=== PATIENT | female | born 1960 | race Caucasian/White ===

== ENCOUNTER 2024-04-04 18:41 | Emergency (ER) | payer OTHER, SELFPAY ==
[2024-04-04 18:47] VITALS: BP 144/83; BMI 31.5
[2024-04-04 19:05] LABS: % Basophils 0.4 % (0-2); % Immature Granulocytes 0.3 % (0-0.5); % Lymphocytes 20.9 % (20.5-51.1); % Monocytes 5.5 % (1.7-9.3); % Neutrophils 71.9 % (42.2-75.2); Absolute Eosinophils 0.1 10^3/uL (0-0.7); Absolute Lymphocytes 1.9 10^3/uL (1.2-3.4); Absolute Monocytes 0.5 10^3/uL (0.1-0.6); Absolute Neutrophils 6.4 10^3/uL (1.4-6.5); Hematocrit 43.2 % (37.0-47.0); Mean Corp Hgb Conc. 34.7 g/dL (33.0-37.0); Mean Corpuscular Hgb 29.5 pg (27.0-31.0); Mean Platelet Volume 9.9 fL (7.4-10.4); Nucleated Red Blood Cells % 0 %; Platelet Count 178 10^3/uL (130-400); Red Blood Cell Count 5.08 10^6/uL (4.20-5.40); Red Cell Dist. Width 12.7 % (11.5-14.5); White Blood Cell Count 8.9 10^3/uL (4.8-10.8)
[2024-04-04 19:21] LABS: ALT (SGPT) 27 U/L (0-35); AST (SGOT) 31 U/L (14-36); Albumin 4.2 g/dl (3.5-5.0); Alkaline Phosphatase 106 U/L (38-126); Blood Urea Nitrogen 16 mg/dl (7-17); Calcium 9.2 mg/dl (8.4-10.2); Carbon Dioxide 26 mmol/L (22-30); Chloride 105 mmol/L (98-107); Estimated Creatinine Clearance 81 ml/min; Glucose 128 mg/dl (70-99); Sodium 138 mmol/L (135-145); Total Bilirubin 0.5 mg/dl (0.2-1.3); eGFR > 60.00
[2024-04-04 19:28] LABS: Troponin I < 0.012 ng/ml
[2024-04-04 20:34] VITALS: BP 123/65
--- NOTE | 2024-04-04 21:46 | ED.GENMED ---
History of Present Illness
General
Chief Complaint: Chest Pain
Source: patient
Time Seen by Provider: 04/04/24 20:47
Travel History
Have you had any contact with someone who has COVID-19?: No
Do you have any symptoms of coronavirus? Fever > 100 degrees, chills, cough, shortness of breath, sore throat, loss of taste or smell, muscle aches, or headache?: No
History of Present Illness
History of Present Illness:
This patient is a 63-year-old female presents emergency department with complaints of discomfort in her central chest and left shoulder blade area that started yesterday. She says 'it does not take my breath away', and occasionally is 'burning' in
quality. She denies associated dyspnea. It is not pleuritic. She said it is very periodic' comes and goes and then it is done', also describing episodes that last seconds at a time and then unpredictably resolving and then coming back. She
wonders if it could be a muscular strain as she was assembling a computer recently. However, when symptoms continued today, she got concerned which prompted her visit here. Patient has a history of a left bundle branch block, no known history of
CAD, last stress was 1-1/2 to 2 years ago and looked well. Patient denies associated diaphoresis, neck pain, jaw pain, headache, dizziness, leg swelling, recent immobilization, recent trauma, abdominal pain, nausea, vomiting, or other complaints.
Patient is pain-free at this time. The last time she had discomfort was on her way over here. Again, it lasted just a few seconds and then resolved completely.
Past History
Past History
ED Past Medical History: Hypercholesterolemia and Hypothyroidism
ED Past Surgical History: Gynecological and Other (Thyroidectomy)
Social History
Tobacco: Non-smoker
Alcohol: None
Drug: None
Personal:
Living: with family
Family History
Family History: Diabetes, CAD and Other (Breast cancer)
Phy Exam
Physical Exam
Physical Exam:
GENERAL: Alert , in no apparent distress
EYE: pupils equal and reactive
NECK: Supple, no significant adenopathy.
ENT: o/p clr, mmm.
CARDIAC: Regular rate and rhythm .
LUNGS: Clear breath sounds bilaterally, no acute respiratory distress, no wheezes/rales/rhonchi
ABDOMEN: Soft, without focal tenderness, no r/g, no cvat
NEUROLOGICAL: Alert and oriented, no focal neuro deficits
SKIN: Warm and dry, skin intact.
MUSCULOSKELETAL: No edema, well perfused.
PSYCH: Normal and appropriate interaction.
Scores
Heart Score for Chest Pain Patients
STEMI patient?: Not applicable
Course
Orders/Labs/Results
Orders:
Orders
04/04/24 18:42
ECG [Electrocardiogram (*1)] Urgent
Reason for Study: Chest Pain
04/04/24 18:43
EKG- Treatment ONCE
EKG- Treatment ONCE
CXR2 [CR Chest - 2 Views ] Urgent
Comment:
Reason For Exam: chest pain
04/04/24 18:56
Complete Blood Count/With Diff Urgent
Comprehensive Metabolic Panel Urgent
Troponin I Urgent
Abnormal Lab Results
04/04/24
18:56
Glucose 128 H mg/dl
(70-99)
04/04/24 18:56
04/04/24 18:56
Vital Signs
Initial and Last Documented VS:
Initial Vital Signs
Temp Pulse Resp BP Pulse Ox
98.2 F 81 16 144/83 98
04/04/24 18:47 04/04/24 18:47 04/04/24 18:47 04/04/24 18:47 04/04/24 18:47
Last Documented Vital Signs
Temp Pulse Resp BP Pulse Ox
98.2 F 64 16 123/81 95
04/04/24 18:47 04/04/24 22:31 04/04/24 22:31 04/04/24 22:31 04/04/24 20:27
*Critical Care Note
Total Time (30-74mins, 75-104mins- exclusive of procedures): Not Applicable
Update Note
Update Note:
Patient presents to the Emergency Department with __chest and scapular pain
Number and Complexity of Problems Addressed at the Encounter
� Chronic conditions affecting care:
� Acute Exacerbation and/or Progression of Chronic Illness:
� Differential Diagnosis includes: But not limited to ACS, muscular strain, PE, dissection, pericarditis, pneumonia, etc. etc.
Amount and/or Complexity of Data to be Reviewed and Analyzed
� I performed an independent evaluation of and my interpretation is:
EKG: Read by me, normal sinus rhythm, normal rate, left bundle branch block, no acute ischemia
CT:
Xrays:READ BY me, nad, no mediastinal enlargement
Laboratory Studies: Unremarkable
Other:
� Review of other/old records reveals: February 2023 stress echoECHO INTERPRETATION
Resting images revealed normal left ventricular size and function. No regional
wall motion abnormalities were seen. The estimated ejection fraction is 55-
60%..
Post-Exercise Echo Interpretation
At peak exercise, the left ventricle augmented appropriately with no new clear
regional wall motion abnormalities. LV ejection fraction at peak exercise is
65-70%. However, the patient had a rate dependent left bundle branch block
with some paradoxical septal motion making most of the anterior wall
uninterpretable
� Clinical information was obtained by an independent historian: who is bedside
� Prescriptions/Medications Considered but not given:
� Further testing considered but not performed:
Risk of Complications and/or Morbidity or Mortality of Patient Management
� Social determinants of health affecting care:
� Discussion with other providers (PCP, Hospitalists, Consultants, etc):
� Escalation of care including admission/observation vs risk of discharge considered:w/u unremkarable for emegent/urgent pathology. Known LBBB, trop wnl, sxs very atypical for acs. Not pleuritic/no sob/no tachycard etc etc to
suggest PE. Pain not 'ripping' or 'tearing', not sudden, no radiating through to bhcest/back, no htn, mediastrinum wnl = doubt dissection. D/w pt import of f/u and reasons to rted.
ED Attending Note
-
Portions of this chart may have been created with voice recognition software.� Occasional wrong word or��sound alike� substitutions may have occurred due to the inherent limitations of voice recognition software.
Discharge Plan
Departure
Patient Disposition: Home (Routine Discharge)
Date of Disposition: 04/04/24
Time of Disposition: 22:02
Patient with high blood pressure during this ER visit?: Yes
Condition: Good
Discharge Problem:
Chest pain
Instructions: Chest Pain PCP Follow Up, BLOOD PRESSURE
Prescriptions:
No Action
levothyroxine 100 MCG tablet
100 mcg PO .EVERYOTHERDAY
Patient Comments:
ALTERNATES W/ 112MCG
levothyroxine 112 MCG tablet
112 mcg PO .EVERYOTHERDAY
Patient Comments:
ALTERNATES W/ 100MCG
Black Cohosh Root
1 tab PO BID
Referrals:
Nasir Willoughby MD [Family Provider] - Follow up in 2-3 days
Sade Zepeda MD [Active] - Next open appointment
Activity Restrictions/Additional Instructions:
IF YOU DEVELOP INCREASING/NEW/PERSISTENT PAIN, FEVER, VOMITING, TROUBLE BREATHING, SWELLING, OR OTHER WORRISOME SIGNS, GO TO THE ER IMMEDIATELY!
Interventions
Interventions:
*Risk Screen - Suicide Last Done: 04/04/24 18:47
*General Assessment Last Done: 04/04/24 20:27
*Neglect/Abuse Screening Last Done: 04/04/24 18:47
ED- Fall Risk Assessment Last Done: 04/04/24 18:47
*ED COVID-19 Vaccine History Last Done: 04/04/24 20:27
*Nursing Disposition Last Done: 04/04/24 22:31
ED- Cardiac Assessment Last Done: 04/04/24 20:27
Discharge Date and Time
Discharge Date/Time: 04/04/24 22:32
Print Language: JAPANESE
[2024-04-04 22:31] VITALS: BP 123/81
== END 2024-04-04 22:32 | disposition home or self-care (01) ==
LOC: EMR 18:41
PROVIDERS: Emergency Medicine; EMERGENCY PHYSICIAN Emergency Medicine; FAMILY PHYSICIAN Family Medicine
DX: R07.89 Other chest pain (principal); R03.0 Elevated blood-pressure reading, without diagnosis of hypertension
CPT/HCPCS: 99285; 71046; 80053; 84484; 85025; 93005